=== PATIENT | female | born 1980 | race Caucasian/White ===

== ENCOUNTER 2017-11-25 21:31 | Emergency (ER) | payer OTHER ==
[2017-11-25] MEDS ORDERED: traMADol HCl 50 MG TAB ONE (22:08)
== END 2017-11-25 22:15 | disposition home or self-care (01) ==
LOC: ERS 21:31
DX: L08.9 Local infection of the skin and subcutaneous tissue, unspecified (principal); B95.8 Unspecified staphylococcus as the cause of diseases classified elsewhere
CPT/HCPCS: 99283